=== PATIENT | male | born 1985 ===

== ENCOUNTER 2018-01-10 03:20 | Emergency (ER) | payer SELFPAY ==
--- NOTE | 2018-01-10 04:04 | ED PDOC ---
Arrival/HPI - General Chief Complaint: GI Problem Time Seen by Provider: 01/10/18 03:30 Historian: Patient, Parent - History of Present Illness Narrative History of Present Illness (Text): 01/10/18 04:04 Baron De is a 32 year old male, with no significant past history, who presents to the Emergency department accompanied by mother complaining of vomiting. Patient states he has been experiencing nausea with multiple episodes of vomiting throughout the day and became dizzy with associated headache tonight. Patient denies any fever, chills, chest pain, shortness of breath, diarrhea, urinary symptoms, back pain, neck pain, headache, dizziness, or any other complaints. Symptom Onset: Gradual Symptom Course: Unchanged Activities at Onset: Light Context: Home Past Medical History - Provider Review Nursing Documentation Reviewed: Yes - Psychiatric Hx Substance Use: No Family/Social History - Physician Review Nursing Documentation Reviewed: Yes Family/Social History: Unknown Family HX Smoking Status: Never Smoked Hx Alcohol Use: No Hx Substance Use: No Allergies/Home Meds Allergies/Adverse Reactions: Allergies No Known Allergies Allergy (Verified 01/10/18 03:27) Home Medications: Home Meds Medication Instructions Recorded Confirmed No Known Home Med 01/10/18 01/10/18 Review of Systems - Physician Review All systems were reviewed & negative as marked: Yes - Review of Systems Constitutional: Normal. absent: Fevers Eyes: Normal ENT: Normal Respiratory: Normal. absent: SOB, Cough Cardiovascular: Normal. absent: Chest Pain Gastrointestinal: Nausea, Vomiting. absent: Diarrhea Genitourinary Male: Normal. absent: Dysuria, Frequency, Urinary Output Changes Musculoskeletal: Normal. absent: Back Pain, Neck Pain Skin: Normal. absent: Rash Neurological: Headache, Dizziness Endocrine: Normal Hemo/Lymphatic: Normal Psychiatric: Normal Physical Exam Vital Signs Reviewed: Yes Vital Signs Temp Pulse Resp BP Pulse Ox 01/10/18 03:28 98.1 F 57 L 18 127/70 100 Temperature: Afebrile Blood Pressure: Normal Pulse: Regular Respiratory Rate: Normal Appearance: Positive for: Well-Appearing, Non-Toxic, Comfortable Pain Distress: None Mental Status: Positive for: Alert and Oriented X 3 - Systems Exam Head: Present: Atraumatic, Normocephalic Pupils: Present: PERRL Extroacular Muscles: Present: EOMI Conjunctiva: Present: Normal Ears: Present: NORMAL TM Mouth: Present: Moist Mucous Membranes Pharnyx: Present: Normal Neck: Present: Normal Range of Motion. No: Meningeal Signs Respiratory/Chest: Present: Clear to Auscultation, Good Air Exchange. No: Respiratory Distress, Accessory Muscle Use Cardiovascular: Present: Regular Rate and Rhythm, Normal S1, S2. No: Murmurs Abdomen: No: Tenderness, Distention, Peritoneal Signs Back: Present: Normal Inspection Upper Extremity: Present: Normal Inspection. No: Cyanosis, Edema Lower Extremity: Present: Normal Inspection. No: Edema Neurological: Present: GCS=15, CN II-XII Intact, Speech Normal, Motor Func Grossly Intact, Normal Sensory Function Skin: Present: Warm, Dry, Normal Color. No: Rashes Psychiatric: Present: Alert, Oriented x 3, Normal Insight, Normal Concentration Medical Decision Making ED Course and Treatment: 01/10/18 04:04 Impression: 32 year old male complaining of nausea, vomiting, dizziness, and headache. Plan: -- CT Head w/o contrast -- EKG -- Chest X-ray -- Labs, cardiac enzymes -- IV fluids -- Zofran -- Antivert -- Reassess and disposition Progress Notes: reviewed EKG, sinus bradycardia at [address]-segment elevations or depressions, no T-wave inversions, normal intervals. 01/10/18 05:35 Reviewed radiology, CT Head shows: Brain: Unremarkable. No hemorrhage. No significant white matter disease. No edema. Ventricles: Unremarkable. No ventriculomegaly. Bones/joints: Unremarkable. No acute fracture. Soft tissues: Unremarkable. Sinuses: Unremarkable as visualized. No acute sinusitis. Mastoid air cells: Unremarkable as visualized. No mastoid effusion. IMPRESSION: Normal head/brain CT. 01/10/18 06:04 Chest X-ray reviewed, shows no acute processes. 01/10/18 07:00 Patient feels a bit better but still with some nausea and dizziness.Will continue with IV fluid hydration/antiemetics in ED.Case endorsed to to reassess.If symptoms continue to persist will require possible admission.Final disposition to follow. - Lab Interpretations Lab Results: 01/10/18 03:33 01/10/18 03:33 Lab Results 01/10/18 03:33: WBC 11.4 H, RBC 4.87, Hgb 15.7, Hct 41.8 L, MCV 85.8, MCH 32.2, MCHC 37.6 H, RDW 12.2, Plt Count 203, MPV 11.1 H 01/10/18 03:33: Sodium 139, Potassium 3.5 L, Chloride 102, Carbon Dioxide 19 L, Anion Gap 22 H, BUN 10, Creatinine 0.8, Est GFR ( Amer) > 60, Est GFR ( Non-Af Amer) > 60, Random Glucose 157 H, Calcium 9.7, Total Bilirubin 1.0, AST 21, ALT 21, Alkaline Phosphatase 66, Lactate Dehydrogenase 340, Total Creatine Kinase 102, Troponin I < 0.01, Total Protein 8.1, Albumin 4.9 H, Globulin 3.2, Albumin/Globulin Ratio 1.5 01/10/18 03:33: PT 12.0, INR 1.05, APTT 25.2 I have reviewed the lab results: Yes - RAD Interpretation Radiology Orders: 01/10/18 04:06 HEAD W/O CONTRAST [CT] Stat 01/10/18 04:07 CHEST PORTABLE [RAD] Stat Automatic Quilling Machine Operator: ED Physician, Radiologist - EKG Interpretation Interpreted by ED Physician: Yes Type: 12 lead EKG - Medication Orders Current Medication Orders: Discontinued Medications Sodium Chloride (Sodium Chloride 0.9%) 1,000 mls @ 999 mls/hr IV .Q1H1M STA Stop: 01/10/18 05:07 Last Admin: 01/10/18 04:25 Dose: 999 mls/hr eMAR Start Stop Document 01/10/18 04:25 PRASAD (Rec: 01/10/18 04:25 PRASAD [id number]) Intravenous Solution Start Date 01/10/18 Start Time 04:07 End Date 01/10/18 End time 05:07 Total Infusion Time 60 Meclizine HCl (Antivert) 25 mg PO STAT STA Stop: 01/10/18 04:09 Last Admin: 01/10/18 04:24 Dose: 25 mg Ondansetron HCl (Zofran Inj) 4 mg IVP ONCE ONE Stop: 01/10/18 04:08 Last Admin: 01/10/18 04:23 Dose: 4 mg IVP Administration Document 01/10/18 04:23 PRASAD (Rec: 01/10/18 04:23 PRASAD [id number]) Charges for Administration # of IVP Administrations 1 Ondansetron HCl (Zofran Inj) 4 mg IVP ONCE ONE Stop: 01/10/18 05:16 Last Admin: 01/10/18 05:17 Dose: 4 mg IVP Administration Document 01/10/18 05:17 RD (Rec: 01/10/18 05:18 RD [facility] [id number]) Charges for Administration # of IVP Administrations 1 - Scribe Statement The provider has reviewed the documentation as recorded by the Akanksha Camp Provider Scribe Attestation: All medical record entries made by the Scribe were at my direction and personally dictated by me. I have reviewed the chart and agree that the record accurately reflects my personal performance of the history, physical exam, medical decision making, and the department course for this patient. I have also personally directed, reviewed, and agree with the discharge instructions and disposition. Disposition/Present on Arrival - Present on Arrival Any Indicators Present on Arrival: No History of DVT/PE: No History of Uncontrolled Diabetes: No Urinary Catheter: No History of Decub. Ulcer: No History Surgical Site Infection Following: None - Disposition Have Diagnosis and Disposition been Completed?: No Diagnosis: Vertigo, Nausea & vomiting Disposition Time: 07:00 Condition: STABLE Forms: Search to Phone (Tunisian)
[2018-01-10] MEDS ORDERED: Sodium Chloride 0.9% 1,000 ML IV STA (04:07)
[2018-01-10 04:27] LABS: ALB/GLOB RATIO 1.5 (1.1-1.8); ALBUMIN 4.9 g/dL (3.0-4.8); ALT/SGPT 21 U/L (7-56); AST/SGOT 21 U/L (17-59); BLOOD UREA NITROGEN 10 mg/dL (7-21); CALCIUM 9.7 mg/dL (8.4-10.5); GFR AFRICAN-AMERICAN > 60; GFR NON-AFRICAN AMERICAN > 60
[2018-01-10 04:29] LABS: INR 1.05 (0.93-1.08); PARTIAL THROMBOPLASTIN TIME 25.2 Seconds (25.1-36.5)
[2018-01-10 04:38] LABS: TROPONIN I < 0.01 ng/mL
[2018-01-10 04:52] LABS: HEMOGLOBIN 15.7 g/dL (14.0-18.0); MEAN CELL VOLUME 85.8 fl (80.0-105.0); MEAN CORPUSCULAR HEMOGLOBIN 32.2 pg (25.0-35.0); MEAN CORPUSCULAR HGB CONC 37.6 g/dl (31.0-37.0); MEAN PLATELET VOLUME 11.1 fl (7.0-11.0); RBC 4.87 10^6/uL (3.5-6.1); RED CELL DISTRIBUTION WIDTH 12.2 % (11.5-14.5); WHITE BLOOD COUNT 11.4 10^3/ul (4.5-11.0)
--- NOTE | 2018-01-10 07:38 | ED PDOC ---
Physical Exam Vital Signs Reviewed: Yes Vital Signs Temp Pulse Resp BP Pulse Ox 01/10/18 09:26 100 01/10/18 09:05 65 17 111/70 100 01/10/18 08:17 98.8 F 62 16 110/64 99 01/10/18 07:21 68 18 112/58 L 99 01/10/18 03:28 98.1 F 57 L 18 127/70 100 Temperature: Afebrile Blood Pressure: Normal Pulse: Bradycardic Respiratory Rate: Normal Medical Decision Making ED Course and Treatment: 01/10/18 07:37 Patient endorsed to me by Dr. Wills, pending re-evaluation and final disposition. 01/10/18 09:20 On re-evaluation, patient feels better and is in no acute distress. I have discussed the results and plan with the patient, who expresses understanding. Patient in agreement with plan to be discharged home. Patient is stable for discharge. Patient was instructed to follow up with physician or return if symptoms worsen or new concerning symptoms arise. - Lab Interpretations Lab Results: 01/10/18 03:33 01/10/18 03:33 Lab Results 01/10/18 03:33: WBC 11.4 H, RBC 4.87, Hgb 15.7, Hct 41.8 L, MCV 85.8, MCH 32.2, MCHC 37.6 H, RDW 12.2, Plt Count 203, MPV 11.1 H 01/10/18 03:33: Sodium 139, Potassium 3.5 L, Chloride 102, Carbon Dioxide 19 L, Anion Gap 22 H, BUN 10, Creatinine 0.8, Est GFR ( Amer) > 60, Est GFR ( Non-Af Amer) > 60, Random Glucose 157 H, Calcium 9.7, Total Bilirubin 1.0, AST 21, ALT 21, Alkaline Phosphatase 66, Lactate Dehydrogenase 340, Total Creatine Kinase 102, Troponin I < 0.01, Total Protein 8.1, Albumin 4.9 H, Globulin 3.2, Albumin/Globulin Ratio 1.5 01/10/18 03:33: PT 12.0, INR 1.05, APTT 25.2 - RAD Interpretation Radiology Orders: 01/10/18 04:06 HEAD W/O CONTRAST [CT] Stat 01/10/18 04:07 CHEST PORTABLE [RAD] Stat - Medication Orders Current Medication Orders: Discontinued Medications Sodium Chloride (Sodium Chloride 0.9%) 1,000 mls @ 999 mls/hr IV .Q1H1M STA Stop: 01/10/18 05:07 Last Admin: 01/10/18 04:25 Dose: 999 mls/hr eMAR Start Stop Document 01/10/18 04:25 PRASAD (Rec: 01/10/18 04:25 PRASAD [id number]) Intravenous Solution Start Date 01/10/18 Start Time 04:07 End Date 01/10/18 End time 05:07 Total Infusion Time 60 Meclizine HCl (Antivert) 25 mg PO STAT STA Stop: 01/10/18 04:09 Last Admin: 01/10/18 04:24 Dose: 25 mg Meclizine HCl (Antivert) 25 mg PO STAT STA Stop: 01/10/18 09:23 Last Admin: 01/10/18 09:26 Dose: 25 mg Ondansetron HCl (Zofran Inj) 4 mg IVP ONCE ONE Stop: 01/10/18 04:08 Last Admin: 01/10/18 04:23 Dose: 4 mg IVP Administration Document 01/10/18 04:23 PRASAD (Rec: 01/10/18 04:23 PRASAD [id number]) Charges for Administration # of IVP Administrations 1 Ondansetron HCl (Zofran Inj) 4 mg IVP ONCE ONE Stop: 01/10/18 05:16 Last Admin: 01/10/18 05:17 Dose: 4 mg IVP Administration Document 01/10/18 05:17 RD (Rec: 01/10/18 05:18 RD [id number]) Charges for Administration # of IVP Administrations 1 - Scribe Statement The provider has reviewed the documentation as recorded by the Scribclementine Coelho Provider Scribe Attestation: All medical record entries made by the Scribe were at my direction and personally dictated by me. I have reviewed the chart and agree that the record accurately reflects my personal performance of the history, physical exam, medical decision making, and the department course for this patient. I have also personally directed, reviewed, and agree with the discharge instructions and disposition. Disposition/Present on Arrival - Present on Arrival Any Indicators Present on Arrival: No History of DVT/PE: No History of Uncontrolled Diabetes: No Urinary Catheter: No History of Decub. Ulcer: No History Surgical Site Infection Following: None - Disposition Have Diagnosis and Disposition been Completed?: Yes Diagnosis: Vertigo, Nausea & vomiting Disposition: HOME/ ROUTINE Disposition Time: 09:20 Condition: IMPROVED Discharge Instructions (ExitCare): Vertigo (a Type of Dizziness) (DC) Print Language: DIVEHI Additional Instructions: CONG LOVE, thank you for letting us take care of you today. The emergency medical care you received today was directed at your acute symptoms. If you were prescribed any medication, please fill it and take as directed. It may take several days for your symptoms to resolve. Return to the Emergency Department if your symptoms worsen, do not improve, or if you have any other problems. Please contact your doctor or call one of the physicians/clinics you have been referred to that are listed on the Patient Visit Information form that is included in your discharge packet. Bring any paperwork you were given at discharge with you along with any medications you are taking to your follow up visit. Our treatment cannot replace ongoing medical care by a primary care provider outside of the emergency department. Thank you for allowing the [facility] team to be part of your care today. Follow up with the clinic this week for re-evaluation and further management. CONG LOVE, belia por dejarnos atenderlo hoy. La atencin mdica de emergencia que recibi hoy estaba dirigida a sujatha sntomas agudos. Si le prescribieron algn medicamento, llnelo y tome segn las indicaciones. Sujatah s ntomas pueden tardar varios qiu en resolverse. Regrese al Departamento de Emergencia si sujatha sntomas empeoran, no mejoran o si tiene algn otro problema. Comunquese con de los santos mdico o llame a soumya de los mdicos / clnicas a los que carmona sido referido que figura en el formulario de Informacin de visita del paciente que se incluye en de los santos paquete de michael. Traiga todos los documentos que recibi al momento del michael junto con los medicamentos que est tomando en de los santos visita de seguimiento. Nuestro tratamiento no puede reemplazar la atencin mdica en curso por un proveedor de atencin primaria fuera del departamento de emergencia. Belia por permitir que el equipo de [facility] sea parte de de los santos cuidado hoy. Billy un seguimiento con la clnica esta semana para eugenio reevaluacin y administracin adicional. Prescriptions: Meclizine [Meclizine*] 25 mg PO Q6 PRN #20 tab PRN Reason: Dizziness Referrals: [facility] [Outside] - Follow up with primary [facility] [Outside] - Follow up with primary Forms: [employer] (Nepali)
--- NOTE | 2018-01-10 08:09 | RAD ---
HISTORY: dizzy COMPARISON: No prior. FINDINGS: LUNGS: No active pulmonary disease. PLEURA: No significant pleural effusion identified, no pneumothorax apparent. CARDIOVASCULAR: Normal. OSSEOUS STRUCTURES: No significant abnormalities. VISUALIZED UPPER ABDOMEN: Normal. OTHER FINDINGS: None. IMPRESSION: No active disease.
[2018-01-10 08:19] VITALS: TEMP 98.8
--- NOTE | 2018-01-10 08:34 | CT ---
PROCEDURE: CT HEAD WITHOUT CONTRAST. HISTORY: Dizziness COMPARISON: None available. TECHNIQUE: Axial computed tomography images were obtained through the head/brain without intravenous contrast. Radiation dose: Total exam DLP = 895.20 mGy-cm. This CT exam was performed using one or more of the following dose reduction techniques: Automated exposure control, adjustment of the mA and/or kV according to patient size, and/or use of iterative reconstruction technique. FINDINGS: HEMORRHAGE: No intracranial hemorrhage. BRAIN: Gomez-white matter differentiation is preserved. There is no mass, mass effect or abnormal extra-axial fluid collection. There is no territorial infarction. The midline sagittal structures are normal. VENTRICLES: The ventricles are normal in size, shape and configuration. CALVARIUM: There is no calvarial fracture or extracranial soft tissue swelling. PARANASAL SINUSES: Predominantly clear. MASTOID AIR CELLS: Predominantly clear. OTHER FINDINGS: None. IMPRESSION: No acute intracranial abnormality. A preliminary report was provided by [employer].
[2018-01-10 09:11] VITALS: BP 111/70; PULSE 65; RESP 17; O2SAT 100
--- NOTE | 2018-01-10 10:08 | CARD ---
APPROVED REPORT EKG Measurement Heart [id number] <Conclusion> Sinus bradycardia Early repolarization Otherwise normal ECG
== END 2018-01-10 09:26 | disposition home or self-care (01) ==
LOC: ED 03:20
DX: R42 Dizziness and giddiness (principal); R11.2 Nausea with vomiting, unspecified
CPT/HCPCS: 70450; 71045; 80053; 82550; 83615; 84484; 85027; 85610; 85730; 93005; 96361; 96374; 96376; 99285; J2405; J7030